=== PATIENT | male | born 1975 | race Caucasian/White ===

== ENCOUNTER 2019-06-28 08:37 | Outpatient (CLI) | payer BC ==
[~2019-06-28] VITALS: Ht 182.9 cm; Wt 96.4 kg
[2019-06-28 08:47] VITALS: BP 144/75; PULSE 58
[2019-06-28 09:47] VITALS: BP 123/89; PULSE 53
[2019-06-28 10:00] VITALS: BP 125/79; PULSE 56
[2019-06-28 10:15] VITALS: BP 128/83; PULSE 58
[2019-06-28 10:21] LABS: GLUCOSE,CSF 57 mg/dL (40-70); TOTAL PROTEIN,CSF 53 mg/dL (15-45)
[2019-06-28 10:30] VITALS: BP 118/75; PULSE 57
[2019-06-28 10:45] VITALS: BP 133/72; PULSE 56
[2019-06-28 11:10] LABS: CSF APPEARANCE CLEAR; CSF COLOR COLORLESS; CSF MONONUCLEAR 100 % (70-100); CSF POLYMORPHONUCLEAR 0 % (0-6); CSF RBC 102 /mm3 (0-0)
[2019-07-02 14:52] LABS: HSV 2 DNA PCR QUAL Not Detected (())
== END 2019-06-28 15:37 | disposition home or self-care (01) ==
LOC: COL.RAD 08:37
PROVIDERS: Psychiatry & Neurology Neurology
DX: G44.221 Chronic tension-type headache, intractable (principal)

== ENCOUNTER 2019-06-29 19:01 | Emergency (ER) | payer BC ==
[~2019-06-29] VITALS: Ht 182.9 cm; Wt 98.5 kg
[2019-06-29 22:31] VITALS: BP 135/81; PULSE 65; TEMP 98.3
== END 2019-06-29 22:44 | disposition home or self-care (01) ==
LOC: COL.ER 19:01
DX: G97.1 Other reaction to spinal and lumbar puncture (principal); Z86.61 Personal history of infections of the central nervous system
CPT/HCPCS: J7030